=== PATIENT | female | born 1990 | race Caucasian/White ===

== ENCOUNTER → 2016-08-28 | Outpatient (CLI) | payer BC, OTHER ==
--- NOTE | 2016-08-28 13:47 | US ---
Bilateral Breast Sonography History: Bilateral breast lumps, history of 5 fibroadenomas removed in the past. Grandmother with vinay ast cancer. Comparison: None Findings: Right breast: Corresponding to a palpable lump At the 5 o'clock radial of the right breast, 1 cm from the nipple, is a solid 1.4 x 1 x 1.3 cm, well-defined, ovoid nodule with internal vascular ity consistent with a fibroadenoma. A second small solid nodule is present at the 6 o'clock radial, 3 cm from the nipple measuring approximately 8 x 4 x 7 mm. A third nodule at the 6 o'clock radial 4 cm from the nipple measures 7 x 5 x 8 mm. Left breast: Corresponding to a palpable nodule at the 5 o'clock radial 2 cm from the nipple is an ov al, wider than it is tall slightly macrolobulated 1.4 x 0.8 x 1.3 cm nodule with internal vascularity that is consistent with a fibroadenoma. A small 4 mm satellite fibroadenoma is also present. At the 12 o'clock radial, 6 cm from the nipple is a collection of smaller, 4 or 5, solid nodules also consis tent with fibroadenomas. Impression: Fibroadenomatosis (fibroadenomatoid mastopathy), if any of the patient's nodules are acti vely enlarging, they could be sampled using ultrasound directed vacuum assisted core biopsy. Recommendation: Considering the patient's history, 6 month follow-up ultrasound is recommended to ac curately reassess size. Results and recommendation were discussed with the patient in detail, who is in agreement with the pl an. At her discretion she may consult with Dr. Aranda if surgical excision is preferred. BI-RADS 3. Probably benign.
--- NOTE | 2016-08-28 14:30 | MA ---
Diagnostic Bilateral Digital Mammogram Clinical Indications: Bilateral breast masses, grandmother with breast cancer. History of 5 fibroaden daniel surgeries Technique: Standard cephalocaudal and mediolateral oblique projections are obtained. This examinati on was processed by the [employer] computer aided detection system. Comparison: Ultrasound done earlier Breast density: C; The breast tissue is heterogeneously dense, which could obscure detection of small masses. Findings: CAD was reviewed. A 1.5 cm round mass at the 5 o'clock position of the right breast is cons istent with a fibroadenoma. Other sonographically visualized fibroadenomas are difficult to visualize due to the patient's breast density. There are no abnormal microcalcifications or architectural dist ortion. There is no skin thickening or nipple retraction.. Impression: Benign mammogram. BI-RADS 2. Recommendation: The patient's breast lump should be managed with serial physical examination by hers elf with monthly self breast exam, her health care practitioner and follow-up sonography. Results and recommendation were discussed with the patient, who is in agreement with the plan. She wa s urged to return sooner if any of the lumps increases in size. [facility] will send a result letter to the patient. Negative mammography should not preclude additional workup of a clinically suspicious finding. The patient's information is entered into a reminder system with a target due date for her next mammo gram.
== END ==
LOC: BMCIMAGING 12:40
PROVIDERS: ATTEND Internal Medicine
DX: N63 Unspecified lump in breast (principal); D24.9 Benign neoplasm of unspecified breast; Z80.3 Family history of malignant neoplasm of breast
CPT/HCPCS: G0204

== ENCOUNTER → 2017-03-26 | Outpatient (CLI) | payer BC, OTHER | LOC: FIMAGING 08:09 | PROVIDERS: ATTEND Midwife | DX: Z12.39 Encounter for other screening for malignant neoplasm of breast (principal); N63 Unspecified lump in breast; N94.10 Unspecified dyspareunia ==